=== PATIENT | male | born 1975 | race Caucasian/White ===

== ENCOUNTER 2019-05-30 06:12 | Inpatient (IN) ==
[~2019-05-30 06:12] MED LIST: Bacitracin 50,000 UNIT, Polymyxin B Sulfate 500,000 UNIT, Sodium Chloride IRRigation 1,... IR ONE
[2019-05-30] MEDS ORDERED: Lidocaine HCL 4 ML Topical Solution (Laryng-O-Jet Kit Sterile Pak) TP ONE (06:47)
[2019-05-30] MEDS ORDERED: *HR* Succinylcholine 200 MG/10 ML VIAL IVP ONE (06:47)
[2019-05-30] MEDS ORDERED: *HR* FentaNYL (PF) 100 MCG/2 ML VIAL ONE ×2 (06:47→06:48)
[2019-05-30] MEDS ORDERED: *HR* Rocuronium Bromide 50 MG/5 ML VIAL ONE (06:47)
[2019-05-30] MEDS ORDERED: Lidocaine -MPF 2% 2 ML VIAL ONE (06:47)
[2019-05-30] MEDS ORDERED: Ondansetron 4 MG/2 ML VIAL ONE (06:47)
[2019-05-30] MEDS ORDERED: *HR* Remifentanil 1 MG VIAL IVP ONE ×2 (06:47→09:42)
[2019-05-30] MEDS ORDERED: Dexamethasone 4 MG/ML VIAL ONE (06:47)
[2019-05-30] MEDS ORDERED: *HR* Midazolam HCl 2 MG/2 ML VIAL ONE (06:48)
[2019-05-30] MEDS ORDERED: *HR* Propofol 200 MG/20 ML VIAL IVP ONE (06:54)
--- NOTE | 2019-05-30 06:54 | Anesthesia Evaluation PreOp ---
Date of Encounter: 05/30/19 Time of Encounter: 06:52 - Past History Planned Operation: ACDF C3-5 Cardiac History: HTN, Hyperlipidemia Pulmonary History: Smoker, BIENVENIDO Dx (on CPAP but doesn't user) PIPING MANAGER History: Other (cervical radiculopathy) Other Medical History: GERD Anesthesia History: No Prior Anesthetic Complications, Past Anesthesia (cervical fusion) Alcohol Use: none Drug use: none Medications and Allergies Meclizine [Antivert] 25 mg PO TID #15 tablet 10/28/18 [Rx] Allergy/AdvReac Type Severity Reaction Status Date / Time laughing gas Allergy Unknown Seizure Uncoded 05/28/19 15:27 - Meds/Allergy Pre-op Review Medications Reviewed: Yes Allergies Reviewed: Yes Beta Blockers on Current Med List: No Anesthesia Results - Labs Laboratory Tests 05/28/19 05/28/19 05/28/19 15:40 15:40 15:40 Hgb 16.8 Hct 48.8 Plt Count 316 PT 11.1 INR 1.0 APTT 29.7 Sodium 136 Potassium 4.2 BUN 17 Creatinine 1.06 - Imaging EKG: report reviewed (NSR) Anesthesia Exam Height: 1.8m Weight: 98kg BMI 31 NPO (# of Hours): 8 - HEENT Pupil (Motor): EOMI Mallampati: III Teeth: Missing Oral Opening: Greater than 3 - PIPING MANAGER LOC: Oriented PIPING MANAGER Motor: Normal RUE, Normal LUE, Normal RLE, Normal LLE, Normal Face PIPING MANAGER Sensory: Normal: RUE, LUE, RLE, LLE, Face - Cardiac Rhythm: Regular Murmur: None - Pulmonary Breath Sounds: bilateral Clear Respiratory Effort: Symmetrical Anesthesia Assess/Plan ASA Score: 3 Level of consciousness: Cooperative, Oriented Anesthetic Plan: General Monitoring Plan: Standard Monitors Recovery Plan: PACU (agrees to GA)
[2019-05-30] MEDS ORDERED: Albuterol 2.5 MG/3 ML NEBULIZER IH ONE (07:00)
[2019-05-30] MEDS ORDERED: Ringers Solution, Lactated 1,000 ML IVC SCH ×3 (07:00→11:46)
[2019-05-30] MEDS ORDERED: CeFAZolin Syr 2,000MG/20 ML 2,000 MG/20 ML SYRINGE IVPB ONE (07:00)
[2019-05-30] MEDS ORDERED: traMADol 50 MG TABLET PO PRN (07:10)
[2019-05-30] MEDS ORDERED: *HR* Meperidine 25 MG/ML SYRINGE IVP PRN (07:10)
[2019-05-30] MEDS ORDERED: *HR* OxyCODONE Immed Rel 5 MG TABLET PO PRN (07:10)
[2019-05-30] MEDS ORDERED: *HR* Promethazine 25 MG/ML VIAL IVP PRN (07:10)
--- NOTE | 2019-05-30 07:39 | History & Physical Report ---
Date of Encounter: 05/30/19 Time of Encounter: 07:38 24 Hour HP Update - Instructions Instructions: If the History and Physical is less than 30 days old and was completed prior to A.M. admission and or procedure and has NOT been updated on calendar day of procedure please complete this update prior to performing procedure. - Update Patient reports changes in Medical Condition: No Changes in examination, assessment, or condition: No Changes in Medication: No Preop tests/diagnostics Reviewed: Yes Pre-Op MRSA Screen: Negative Surgery Remains Indicated: Yes Consent for Planned Operative Procedure(s) Verified: Yes - Pre-Operative Checklist Preoperative Checklist Indicated: No Prophylactic Antibiotic Ordered: Yes Home Medications Include Beta Daniel: No Beta Daniel Taken Today (Day of Surgery): No Beta Daniel Taken Yesterday (Day Prior to Surgery): No Is VTE Prophylaxis Indicated?: Yes
[2019-05-30] MEDS ORDERED: *HR* PHENYLEPHRINE 1,000 MCG/10 ML SYRINGE IVP ONE (08:16)
[2019-05-30] MEDS ORDERED: EPHEDrine 50 MG/ML VIAL ONE (08:23)
[2019-05-30] MEDS ORDERED: Propofol 500 MG/50 ML INFUS..BTL ONE ×3 (08:34→09:35)
[2019-05-30] MEDS ORDERED: *HR* Vasopressin 20 UNIT/ML VIAL ONE (09:15)
[2019-05-30] MEDS ORDERED: *HR* HYDROMORPHONE 2 MG/ML VIAL ONE (09:55)
--- NOTE | 2019-05-30 09:58 | Orthopedic Operative Note ---
Date of procedure: 05/30/19 Pre-op diagnosis: Cervical stenosis, cervical radiculopathy Post-op diagnosis: same Operation/Findings: Exploration of fusion C4-5, anterior cervical decompression and fusion C3-4: The patient was brought to the operating room and placed supine on the operating room table. Successful general endotracheal anesthesia intubation was performed. Neurophysiologic monitoring personnel placed leads on the upper and lower extremities as well as the cranium for EMG monitoring purposes. Appropriate baseline potentials were noted by the neurophysiologic monitoring staff. Boswell catheter was placed prior to positioning. Compression boots and stockings were placed for deep vein thrombosis prophylaxis. Padding was also placed all bony prominences including the ulnar nerve near the medial epicondyles of the elbows were appropriately padded. Mild traction was placed on the bilateral shoulders and taped into place. Preoperative antibiotics were administered. The area from the mandible bilaterally to the upper thoraces was prepped and draped in the usual sterile fashion. A transverse incision was made 1 cm proximal to the level of the cricoid cartilage which is approximately 3 cm in length and extended from the midline of the cervical spine laterally towards the sternocleidomastoid muscle on the left. We then performed standard medial approach to the carotid sheath. Sponges were used to tease the fascial medial to the sternocleidomastoid muscle while carefully controlling and palpating the carotid artery. Using careful dissection we were able to get to the level of the anterior vertebral bodies and longus coli muscles. The spinal needle was placed at the appropriate C3-4 level, and intraoperative radiograph was obtained which was a cervical spine lateral radiograph. The needle and radiograph confirmed we were at the correct C3-4 operative level. We then palpated and explored the fusion mass at C4-5. Clinically, there appeared to be a solid arthrodesis at this level. We further exposed the C3-4 level by using Bovie cautery under the medial edge of the longus coli muscles to allow them to be retracted approximately 2 mm laterally on each side. An 11 blade was used to perform anterior discectomy at the appropriate C3-4 level after an initial annulotomy of the anterior longitudinal ligament and annulus was performed. Further disc material was removed with pituitary Rongeurs. Subsequently, Synthes pins were placed at the C3 and C4 vertebral bodies respectively to provide distraction. We then used a Trimline cervical retractor which was placed in both medial and lateral as well as inferior superior direction to allow full visualization of the appropriate C3-4 disc and C3 and C4 vertebral bodies. The Leica microscope was brought to the field and the remainder of the procedure was performed under the guidance of this microscope. Using pituitary rongeurs and small curettes, various micro-instruments, a full discectomy was performed at the appropriate C3-4 level. The posterior longitudinal ligament was encountered and appeared partially calcified. A portion of this ligament was removed. After complete and thorough discectomy and removal of spondylitic material was performed the endplates of the C3 and C4 vertebral bodies were prepared with a bur until allow bleeding of cancellous bone. A 7 mm trial graft was evaluated and appeared to fit quite well within the excised disc space. A cortico-cancellus allograft of 7 mm was utilized, carefully tapped into place within the excised disc space with the aid of a bone tamp. It was seated approximately 2 mm from the anterior edge of the cortex of the adjacent vertebral bodies. A cervical plate was then placed on the anterior aspect of the C3 and C4 vertebral bodies. The plate was placed in the midline position after drilling four 13 mm self tapping screws and inserting them. They were locked in place using standard Venture plate maneuvers. At this point a lateral radiograph of the cervical spine was obtained and showed satisfactory position of the graft and plate. The wound was copiously irrigated and bleeders encountered were cauterized using Bovie cautery. Platysma was closed with interrupted 2-0 Vicryl sutures. Running 3-0 Monocryl suture was used for skin closure. Sterile dressing was placed over the neck wound. The patient was transferred to a hospital bed and extubated. The patient was noted to be fully motor and sensory intact in the recovery room at the end of the procedure. The medications. All sponge instrument and needle counts were correct at the end of the procedure. Anesthesia: GETA Surgeon: Mian Wright Jr Was there an graphic design assistant present: No Estimated blood loss (cc): 12 Specimen: None Condition: stable Disposition: PACU
[2019-05-30] MEDS ORDERED: Naloxone 0.4 MG/ML INJ ONE (10:14)
[2019-05-30] MEDS: *HR* FentaNYL (PF) 100 MCG/2 ML VIAL IVP PRN ×2 (11:00→11:06)
[2019-05-30] MEDS ORDERED: Melatonin 3 MG TABLET PO PRN (11:46)
[2019-05-30] MEDS ORDERED: Ondansetron 4 MG/2 ML VIAL IVP PRN (11:46)
[2019-05-30] MEDS ORDERED: *HR* HYDROcodone/Acet 5/325 mg TABLET PO PRN (11:46)
[2019-05-30] MEDS ORDERED: Naloxone 0.4 MG/ML INJ IVP PRN (11:46)
[2019-05-30] MEDS ORDERED: Acetaminophen 325 MG TABLET PO PRN (11:46)
--- NOTE | 2019-05-30 13:45 | Anesthesia Evaluation Post Op ---
Date of Encounter: 05/30/19 Time of Encounter: 11:22 - Discharge PostOp Status: Transfer Patient to floor (Patient's vital signs have been reviewed. Patient is stable postoperatively and has adequately recovered from anesthesia. Patient is determined to have stable airway patency and respiratory function including respiratory rate and oxygen saturation. Patient has a stable heart rate, blood pressure and adequate hydration. Patients mental status is acceptable. Patients temperature is appropriate. Pain and nausea are adequately controlled)
[2019-05-30] MEDS: *HR* OxyCODONE Immed Rel 5 MG TABLET PO PRN ×2 (14:34→19:54)
[2019-05-31] MEDS: *HR* OxyCODONE Immed Rel 5 MG TABLET PO PRN ×2 (00:48→06:35)
--- NOTE | 2019-05-31 08:31 | Discharge Summary ---
Date of Encounter: 05/31/19 Time of Encounter: 08:45 - Discharge Diagnosis (1) Cervical spinal stenosis Priority: Primary Status: Chronic (2) Cervical radiculopathy Priority: Primary Status: Chronic (3) Status post cervical spinal fusion Priority: Primary Status: Acute - Hospital Course Hospital course: Mr. Newton is a 44 year old male POD#1 s/p Exploration of fusion C4-5, anterior cervical decompression and fusion C3-4 [Cervical stenosis, cervical radiculopathy] 05/30/19 The patient had an uneventful postoperative course. Progressed from intravenous analgesic needs to oral analgesic needs only. Remained neurovascularly intact and mobilized satisfactorily. All intraoperative and/or postoperative radiographic studies were satisfactory. Patient course and disposition discussed with Dr. Wright. Patient is discharged with plan for rehabilitation and follow- up in 2 weeks post discharge on analgesic medication and patient's home medications. - Time Spent with Patient Total time spent providing and/or coordinating discharge services: - Discharge Medications Prescriptions: New Docusate Sodium [Colace] 100 mg PO BID 5 Days #10 capsule Acetaminophen [Non-Aspirin Extra Strength] 500 mg PO Q6H PRN 7 Days #28 tablet PRN Reason: Mild To Moderate Pain OxyCODONE Immed Rel [Roxicodone 5 MG] 5 mg PO Q6HR PRN 5 Days #20 tablet PRN Reason: Severe Pain Continued Omeprazole [PriLOSEC] 20 mg PO HS Melatonin 5 mg PO HS PRN PRN Reason: Sleep Lisinopril [Zestril] 10 mg PO BID Etodolac 500 mg PO BID Home Medications: Etodolac 500 mg PO BID 05/30/19 [History] Lisinopril [Zestril] 10 mg PO BID 05/30/19 [History] Melatonin 5 mg PO HS PRN 05/30/19 [History] Omeprazole [PriLOSEC] 20 mg PO HS 05/30/19 [History] Acetaminophen [Non-Aspirin Extra Strength] 500 mg PO Q6H PRN 7 Days #28 tablet 05/31/19 [Rx] Docusate Sodium [Colace] 100 mg PO BID 5 Days #10 capsule 05/31/19 [Rx] OxyCODONE Immed Rel [Roxicodone 5 MG] 5 mg PO Q6HR PRN 5 Days #20 tablet 05/31/19 [Rx] Allergies/Adverse Reactions: Allergy/AdvReac Type Severity Reaction Status Date / Time Nitrous Oxide Allergy Unknown Anaphylaxis Verified 05/30/19 19:17 Date of admission: 05/30/19 11:46 Primary care physician: PCP NONE Consults: 05/30/19 11:46 Consult to Occupational Therapy [CONS] Routine Comment: Evaluate, develop and implement POC Reason for Consult: Postoperative rehabilitation Does patient have active BEDREST order?: No Is patient medically & hemodynamically stable?: Yes Patient assessed for mobility or mobilized this visit?: No Consult to Physical Therapy [CONS] Routine Comment: Evaluate, develop and implement POC Reason for Consult: Postoperative rehabilitation Does patient have active BEDREST order?: No Is patient medically & hemodynamically stable?: Yes Patient assessed for mobility or mobilized this visit?: No Consult to Spine Navigator [CONS] [CONS] Routine Discharging clinician: Mian Wright Jr Anticipated date of discharge: 05/31/19 - VTE Documentation of Mechanical Device: Graduated compression elastic hosiery Labs on day of discharge: Labs from last 24 hours 05/28/19 15:40 Crossmatch See Detail - Impressions ITS Impressions Cervical Spine X-Ray 05/30/19 00:00 IMPRESSION: Intraprocedural fluoroscopic spot images as above. See separate procedure report for more information. D/ / Darren Alegria MD / Darren Alegria MD Interpreting Provider: Darren Alegria MD Fluoroscopy 05/30/19 00:00 IMPRESSION: Intraprocedural fluoroscopic spot images as above. See separate procedure report for more information. D/ / Darren Alegria MD / Darren Alegria MD Interpreting Provider: Darren Alegria MD Cervical Spine X-Ray 05/31/19 08:00 IMPRESSION: 1. Status post ACDF at C3-C4 with expected postsurgical changes. D/ / 05/31/2019 07:55:43 Veronica Breaux MD / guilherme Interpreting Provider: Veronica Breaux MD - Patient Status Disposition: Home, Self-Care Condition: Good Functional capacity at discharge: independent ambulation Overall status at discharge: patient is progressing back to baseline - Discharge Instructions Follow Up With: NONE,PCP [Primary Care Provider] - Additional Instructions: Discharge Instructions: Cervical Please call [facility] ([phone]), your Primary Care Physician, or report to the ER if you have any of the following symptoms: Fever greater that 101.5, increased pain/redness/drainage/odor for your incision site or any other concerning symptoms. ACTIVITY * May Shower * No Tub Baths * No Smoking * No Swimming * No Driving * Wear Collar when up walking * Incentive Spirometer 10 times an hour MEDICATIONS: Upon discharge resume your home medications. Take all the medications as prescribed. Take a stool softener if taking narcotic pain medications. Stool softeners are only effective if you drink enough fluids. Drink 6-8 glass of water or fluids a day, unless this is not allowed for another health problem. Despite using stool softeners, if you haven't had a bowel movement in 3 days, please switch to a gentle laxative. Gentle laxatives are sold over the counter. You should have a bowel movement within 24 hours, if not call the office. You will be discharged from the hospital with a prescription for pain medication. You are encouraged to decrease the use of narcotic pain medication as tolerated. Should you require a refill, please call the office. It is best to call 48-72 hours in advance of needing a prescription refill so you don't run out of medication. WOUND CARE: Leave steri-strips in place until they fall off on their own. Pat dry when you get out of the shower. FOLLOW-UP: Please follow up with your surgeon in the orthopedic clinic in 2 weeks from the day of surgery. References: [employer] ([email or web address]) - Diet and Activity Activity: as per physical therapy Diet: advance to your usual diet
[2019-05-31 10:45] VITALS: BP 124/74
== END 2019-05-31 13:23 | disposition home or self-care (01) | DRG 321 ==
LOC: SAMDAY 06:12 → 3NENU 11:46
PROVIDERS: ADMIT Orthopaedic Surgery Orthopaedic Surgery of the Spine; ATTEND Orthopaedic Surgery Orthopaedic Surgery of the Spine